=== PATIENT | male | born 1940 | race Caucasian/White ===

== ENCOUNTER 2018-08-24 07:59 | Day surgery (SDC) | payer OTHER ==
[2018-08-23 16:31] LABS: BASOPHILS % (AUTO) 0.4 % (0-1); EOSINOPHILS # (AUTO) 0.4 X10'3 (0-0.9); EOSINOPHILS % (AUTO) 6.4 % (0-6); HEMATOCRIT 43.2 % (42.0-52.0); HEMOGLOBIN 14.6 g/dl (14.0-17.9); LYMPHOCYTES # (AUTO) 2.3 X10'3 (1.1-4.8); MEAN CORPUSCULAR HEMOGLOBIN 29.9 PG (27.0-31.0); MEAN CORPUSCULAR HGB CONC 33.7 % (33.0-36.5); MEAN CORPUSCULAR VOLUME 88.8 FL (78-98); MEAN PLATELET VOLUME 8.3 FL (7.4-10.4); MONOCYTES # (AUTO) 0.5 X10'3 (0-0.9); MONOCYTES % (AUTO) 7.1 % (2-12); NEUTROPHILS # (AUTO) 3.7 X10'3 (1.8-7.7); NEUTROPHILS % (AUTO) 53.1 % (42-75); PLATELET COUNT 234 X10'3 (140-440); RED BLOOD COUNT 4.87 X10'6 (4.70-6.10); RED CELL DISTRIBUTION WIDTH 13.4 % (11.5-14.5)
[2018-08-23 16:56] LABS: ALANINE AMINOTRANSFERASE 32 U/L (12-78); ALBUMIN 3.9 G/DL (3.4-5.0); ALBUMIN/GLOBULIN RATIO 1.1 (1.1-1.5); ALKALINE PHOSPHATASE 73 IU/L (46-116); ANION GAP 8 (8-16); ASPARTATE AMINO TRANSFERASE 22 U/L (10-37); BILIRUBIN,TOTAL 0.5 MG/DL (0.1-1.0); BLOOD UREA NITROGEN 17 MG/DL (7-18); BUN/CREATININE RATIO 15.5 (5.4-32.0); CALCIUM 9.3 MG/DL (8.5-10.1); CHLORIDE 105 MMOL/L (99-107); GLUCOSE 98 MG/DL (70-104); POTASSIUM 4.6 MMOL/L (3.5-5.1); SODIUM 144 MMOL/L (135-145); TOTAL CARBON DIOXIDE 31.4 MMOL/L (24-32); TOTAL PROTEIN 7.5 G/DL (6.4-8.2); eGFR 65 ML/MIN
[2018-08-23 17:14] LABS: PARTIAL THROMBOPLASTIN TIME 29 SECONDS (22-32); PROTHROMBIN TIME 10.5 SECONDS (9.0-12.0)
[~2018-08-24] VITALS: Ht 177.8 cm; Wt 110.3 kg
[2018-08-24] VITALS (12 sets, daily range): BP systolic 139–178; BP diastolic 51–96
[2018-08-24] MEDS ORDERED: LIDOcaine 1% (10mg/ml) 2ml vial ONE (08:15)
[2018-08-24] MEDS ORDERED: insulin Lispro (HumaLOG) vial - multi-dose SQ SCH (08:25)
[2018-08-24] MEDS ORDERED: normal saline 1000ml 1,000 ML IV SCH (08:25)
[2018-08-24] MEDS ORDERED: dextrose ORAL solution 15 GM/59 ML bottle PO PRN ×2 (08:25)
[2018-08-24] MEDS ORDERED: diphenhydrAMINE 25mg capsule PO PRN (08:25)
[2018-08-24] MEDS ORDERED: glucagon, human recombinant 1mg kit SUBCUT PRN (08:25)
[2018-08-24] MEDS ORDERED: LORazepam 0.5 MG tablet PO PRN (08:25)
[2018-08-24] MEDS ORDERED: nitroGLYCERIN 0.4mg SUBLingual tab SL PRN (08:25)
[2018-08-24] MEDS ORDERED: methylPREDNISolone sod succ 125mg/2ml vial IV ONE (08:25)
[2018-08-24] MEDS ORDERED: dextrose 50%-water 50ml dispensing syringe IV PRN ×2 (08:25)
[2018-08-24] MEDS ORDERED: GABA-532 PO (08:36)
[2018-08-24] MEDS ORDERED: ATOR10TA70 PO (08:36)
[2018-08-24] MEDS ORDERED: MONT10TA21 PO (08:36)
[2018-08-24] MEDS ORDERED: SENN-161 PO (08:36)
[2018-08-24] MEDS ORDERED: ASPI-611 PO (08:36)
[2018-08-24] MEDS ORDERED: FEXO180T94 PO (08:36)
[2018-08-24] MEDS ORDERED: METF500T PO (08:36)
[2018-08-24] MEDS ORDERED: DOXY100T2 PO (08:36)
[2018-08-24] MEDS ORDERED: IRBE150T27 PO (08:36)
[2018-08-24] MEDS ORDERED: PIOG15TA8 PO (08:36)
[2018-08-24] MEDS ORDERED: DIAZ10TA PO (08:36)
[2018-08-24] MEDS ORDERED: OXYC-658 PO (08:36)
[2018-08-24] MEDS ORDERED: fentaNYL/PF 50MCG/1 ML 2ML syringe ONE (10:17)
[2018-08-24] MEDS ORDERED: midazolam 2 mg/2 ml injection ONE ×2 (10:17→10:44)
[2018-08-24] MEDS ORDERED: iohexol 350MG/ML 100ml bottle IV ONE (10:18)
[2018-08-24] MEDS ORDERED: iohexol 350 MG/ML 50ML vial IV ONE (10:18)
[2018-08-24] MEDS ORDERED: LIDOcaine 1% (10mg/ml)w/preservative injection 20ml MDV ONE (10:18)
[2018-08-24] MEDS ORDERED: nitroGLYCERIN-Tridil 50MG/D5W 250 ML IV ONE (10:54)
[2018-08-24] MEDS ORDERED: metoprolol tartrate 1mg/ml inj IV ONE (11:02)
[2018-08-24] MEDS ORDERED: ondansetron/PF 4mg/2ml inj IV PRN (11:55)
[2018-08-24] MEDS ORDERED: HYDROcodone/acetaminophen 5mg/325mg tablet PO PRN (11:55)
[2018-08-24] MEDS ORDERED: OXAZEpam 15mg capsule PO PRN (12:00)
[2018-08-24] MEDS ORDERED: proCHLORperazine 10 MG/2 ml inj IV PRN (12:00)
[2018-08-24] MEDS ORDERED: HYDROcodone/acetaminophen 10/325mg tab PO PRN (12:00)
[2018-08-24] MEDS ORDERED: insulin glargine (Lantus) pen - multi-dose SQ SCH (21:00)
== END 2018-08-24 16:45 | disposition home or self-care (01) ==
LOC: SSTAY O 07:59
PROVIDERS: ATTEND Internal Medicine Cardiovascular Disease
DX: I25.119 Atherosclerotic heart disease of native coronary artery with unspecified angina pectoris (principal); E11.40 Type 2 diabetes mellitus with diabetic neuropathy, unspecified; I10 Essential (primary) hypertension; E78.00 Pure hypercholesterolemia, unspecified; J44.9 Chronic obstructive pulmonary disease, unspecified; F41.9 Anxiety disorder, unspecified; M19.90 Unspecified osteoarthritis, unspecified site; Z88.1 Allergy status to other antibiotic agents; Z88.8 Allergy status to other drugs, medicaments and biological substances; Z87.891 Personal history of nicotine dependence; Z79.899 Other long term (current) drug therapy; Z98.890 Other specified postprocedural states
CPT/HCPCS: 36415; 71046; 80053; 82948; 85025; 85610; 85730; 93005; 93458; 99152; 99153; A6257; J1644; J2001; J2250; J2930; J3010; J3490; J7030; Q0163; Q9967; A4620; C1760; C1769; J1815

== ENCOUNTER 2018-09-07 05:11 | Inpatient (IN) | payer OTHER ==
[2018-09-05 13:21] LABS: ABG BASE EXCESS 1.9 mmol/L (-2.0-3.0); ABG HCO3 26.3 mmol/L (22.0-26.0); ABG PCO2 (T) 40.4 mmHg (35.0-48.0); ABG PH (T) 7.431 (7.350-7.450); ABG PO2 (T) 84.9 mmHg (83-108); ALLEN'S TEST Positive; FCOHb 0.3 % (0.5-1.5); FO2Hb 95.7 % (94-100); TOTAL HEMOGLOBIN 14.9 G/dl (14.0-18.0)
[2018-09-05 13:40] LABS: BASOPHILS % (AUTO) 0.2 % (0-1); EOSINOPHILS # (AUTO) 0.4 X10'3 (0-0.9); EOSINOPHILS % (AUTO) 4.2 % (0-6); LYMPHOCYTES # (AUTO) 1.9 X10'3 (1.1-4.8); MEAN CORPUSCULAR HEMOGLOBIN 29.8 PG (27.0-31.0); MEAN CORPUSCULAR HGB CONC 33.3 % (33.0-36.5); MEAN CORPUSCULAR VOLUME 89.6 FL (78-98); MEAN PLATELET VOLUME 8.5 FL (7.4-10.4); MONOCYTES # (AUTO) 0.5 X10'3 (0-0.9); MONOCYTES % (AUTO) 5.1 % (2-12); NEUTROPHILS # (AUTO) 6.8 X10'3 (1.8-7.7); NEUTROPHILS % (AUTO) 70.5 % (42-75); PRE OP HEMATOCRIT 42.7 % (42.0-52.0); PRE OP HEMOGLOBIN 14.2 g/dL (14.0-17.9); PRE OP PLATELET COUNT 214 X10'3 (140-440); RED BLOOD COUNT 4.77 X10'6 (4.70-6.10); RED CELL DISTRIBUTION WIDTH 13.3 % (11.5-14.5)
[2018-09-05 13:48] LABS: CLARITY,URINE CLEAR (Clear); COLOR,URINE YELLOW (Yellow); GLUCOSE, URINE NEGATIVE (Neg); KETONES,URINE NEGATIVE (Neg); LEUKOCYTE ESTERASE ,URINE NEGATIVE (Neg); NITRITES, URINE NEGATIVE (Neg); OCCULT BLOOD,URINE NEGATIVE (Neg); PH,URINE 5.5 (4.8-8.0); PROTEIN,URINE NEGATIVE (Neg); UROBILINOGEN,URINE 0.2 E.U/dL (0.2-1.0)
[2018-09-05 13:49] LABS: UA COLLECTION TYPE CLN CATCH MIDSTREAM
[2018-09-05 13:53] LABS: HEMOGLOBIN A1C 6.6 % (4.5-6.2)
[2018-09-05 13:55] LABS: ALBUMIN 3.8 G/DL (3.4-5.0); ALBUMIN/GLOBULIN RATIO 1.1 (1.1-1.5); ALKALINE PHOSPHATASE 80 IU/L (46-116); BLOOD UREA NITROGEN 21 MG/DL (7-18); BUN/CREATININE RATIO 18.8 (5.4-32.0); CALCIUM 9.3 MG/DL (8.5-10.1); CHLORIDE 104 MMOL/L (99-107); CREATININE 1.12 MG/DL (0.60-1.10); PRE OP ALT 26 U/L (30-65); PRE OP ANION GAP 7 (8-16); PRE OP AST 17 U/L (10-37); PRE OP BILIRUB, TOTAL 0.4 MG/DL (0.0-1.0); PRE OP GLUCOSE 152 MG/DL (70-104); PRE OP POTASSIUM 4.2 MMOL/L (3.4-5.1); PRE OP SODIUM 143 MMOL/L (135-145); TOTAL CARBON DIOXIDE 31.7 MMOL/L (24-32); TOTAL PROTEIN 7.4 G/DL (6.4-8.2); eGFR 63 ML/MIN
[2018-09-05 14:06] LABS: PRE OP PROTIME 10.4 SECONDS (9.0-12.0)
[2018-09-07] VITALS (17 sets, daily range): BP systolic 100–158; BP diastolic 43–75
[~2018-09-07] VITALS: Ht 177.8 cm; Wt 109.1 kg
[~2018-09-07 05:11] MED LIST: ASPI-611 PO; ATOR10TA70 PO; DIAZ10TA PO; DOXY100T2 PO; FEXO180T94 PO; GABA-532 PO; IRBE150T27 PO; METF500T PO; MONT10TA21 PO; OXYC-658 PO; PIOG30TA71 PO; SENN-161 PO; ringers solution, lacted 1,000 ML IV SCH
[2018-09-07] MEDS ORDERED: LIDOcaine 1% (10mg/ml) 2ml vial ONE (05:22)
[2018-09-07] MEDS: DOCUMENT DATE & TIME OF BETA-BLOCKER PO ONE (05:30)
[2018-09-07] MEDS ORDERED: LORazepam 2 mg/ml vial IV PRN (05:30)
[2018-09-07] MEDS ORDERED: cefazolin/dext.iso 2gm/50ml 50 ML IV ONE (05:30)
[2018-09-07] MEDS ORDERED: metoprolol tartrate 12.5mg (1/2 tablet) PO ONE (05:30)
[2018-09-07] MEDS ORDERED: vancomycin inj 1,500 MG in normal saline 300ml IV soln IV ONE (05:30)
[2018-09-07] MEDS ORDERED: mupirocin 2% nasal ointment 1gm UD NS SCH (05:30)
[2018-09-07] MEDS ORDERED: famotidine 20mg tablet PO ONE (05:30)
[2018-09-07] MEDS ORDERED: SUfentanil 50mcg/ml 1ml amp IV ONE ×3 (07:40)
[2018-09-07] MEDS ORDERED: nitroGLYCERIN in D5W 50mg/250ml (Tridil) infusion IV ONE (07:40)
[2018-09-07] MEDS ORDERED: niCARDipine in NS 40mg/200ml (0.2mg/ml) IVPB IV ONE (07:40)
[2018-09-07] MEDS ORDERED: MIDAZolam 1mg/ml 10ml vial ONE (07:40)
[2018-09-07] MEDS ORDERED: protamine sulf. 10mg/ml inj. IV ONE (07:40)
[2018-09-07] MEDS ORDERED: aminocaproic acid 250 MG/1 ML inj. ONE ×2 (07:40→14:00)
[2018-09-07] MEDS ORDERED: sevoflurane 250ml liquid IH ONE (07:40)
[2018-09-07] MEDS ORDERED: INSULIN R 100 UNIT in NS 100ML (1 UNIT/1 ML) BAG IV ONE (07:40)
[2018-09-07] MEDS ORDERED: pancuronium br 1mg/ml inj IV ONE (07:43)
[2018-09-07] MEDS ORDERED: propofol inj 20 ML IV ONE (07:43)
[2018-09-07] MEDS ORDERED: LIDOcaine 2% (20mg/ml) 5ml vial ONE (07:43)
[2018-09-07 08:26] LABS: ABG BASE EXCESS -0.2 mmol/L (-2.0-3.0); ABG OXYGEN SATURATION 99.3 % (95-98); ABG PH 7.382 (7.350-7.450); ABG PO2 426.2 mmHg (60.0-100.0); CL (ABG) 108 mmol/L (99-107); FCOHb 0.7 % (0.5-1.5); FMetHb 0.3 % (0.3-1.12); FO2Hb 98.3 % (94-100); GLUCOSE (ABG) 137 mg/dl (70-105); IONIZED CA (ABG) 1.14 mmol/L (1.03-1.32); NA (ABG) 137 mmol/L (135-145); TOTAL HEMOGLOBIN 13.2 G/dl (14.0-18.0)
[2018-09-07] MEDS ORDERED: heparin 10,000 units/1 ML INJ IR ONE (08:47)
[2018-09-07] MEDS ORDERED: papaverine 30 mg/ml 2ml inj. IA ONE (08:47)
[2018-09-07] MEDS ORDERED: papaverine 30 mg/ml 2ml inj. ONE (09:00)
[2018-09-07] MEDS ORDERED: heparin 1,000 units/ml 10ml inj ONE ×2 (09:00→14:00)
[2018-09-07] MEDS ORDERED: ePHEDrine 50MG/ML INJ. ONE (09:06)
[2018-09-07] MEDS ORDERED: rocuronium 10mg/ml inj IV ONE ×2 (09:06)
[2018-09-07 09:21] LABS: ACT @ 1.70 U 346 SEC (193-297); ACT @ 2.84 U 506 SEC (260-420); BASELINE ACT 163 SEC (101-148)
[2018-09-07] MEDS ORDERED: labetalol 5mg/ml 20ml inj. IV ONE (09:38)
[2018-09-07 10:11] LABS: ABG BASE EXCESS 0.4 mmol/L (-2.0-3.0); ABG HCO3 24.1 mmol/L (22.0-26.0); ABG OXYGEN SATURATION 98.7 % (95-98); ABG PH 7.455 (7.350-7.450); ABG PO2 372.7 mmHg (60.0-100.0); CL (ABG) 107 mmol/L (99-107); FCOHb 0.3 % (0.5-1.5); FMetHb 0.6 % (0.3-1.12); FO2Hb 97.8 % (94-100); GLUCOSE (ABG) 136 mg/dl (70-105); K (ABG) 5.1 mmol/L (3.3-5.1); NA (ABG) 133 mmol/L (135-145); TOTAL HEMOGLOBIN 10.5 G/dl (14.0-18.0)
[2018-09-07 10:30] LABS: ABG BASE EXCESS VENOUS 0.6 mmol/L; ABG HCO3 VENOUS 25.4 mmol/L; ABG PCO2 VENOUS 41.5 mmHg; ABG PO2 VENOUS 51.5 mmHg; CL (ABG) 107 mmol/L (99-107); FCOHb VENOUS 0.3 %; FHHb VENOUS 13.1 %; FMetHb VENOUS 0.6 %; GLUCOSE (ABG) 150 mg/dl (70-105); IONIZED CA (ABG) 1.01 mmol/L (1.03-1.32); K (ABG) 5.1 mmol/L (3.3-5.1); NA (ABG) 135 mmol/L (135-145); TOTAL HEMOGLOBIN 10.6 G/dl (14.0-18.0)
[2018-09-07 11:26] LABS: ABG BASE EXCESS -1.9 mmol/L (-2.0-3.0); ABG HCO3 22.9 mmol/L (22.0-26.0); ABG OXYGEN SATURATION 97.9 % (95-98); ABG PCO2 39.2 mmHg (35.0-45.0); ABG PH 7.385 (7.350-7.450); ABG PO2 140.9 mmHg (60.0-100.0); CL (ABG) 108 mmol/L (99-107); FCOHb 0.3 % (0.5-1.5); FMetHb 0.4 % (0.3-1.12); FO2Hb 97.2 % (94-100); GLUCOSE (ABG) 139 mg/dl (70-105); IONIZED CA (ABG) 1.08 mmol/L (1.03-1.32); NA (ABG) 137 mmol/L (135-145); TOTAL HEMOGLOBIN 10.6 G/dl (14.0-18.0)
[2018-09-07 11:50] LABS: ABG HCO3 24.8 mmol/L (22.0-26.0); ABG OXYGEN SATURATION 98.7 % (95-98); ABG PCO2 41.3 mmHg (35.0-45.0); ABG PH 7.397 (7.350-7.450); ABG PO2 321.8 mmHg (60.0-100.0); CL (ABG) 105 mmol/L (99-107); FCOHb 0.3 % (0.5-1.5); FMetHb 0.5 % (0.3-1.12); FO2Hb 97.9 % (94-100); GLUCOSE (ABG) 123 mg/dl (70-105); IONIZED CA (ABG) 1.39 mmol/L (1.03-1.32); K (ABG) 4.4 mmol/L (3.3-5.1); NA (ABG) 134 mmol/L (135-145); TOTAL HEMOGLOBIN 9.3 G/dl (14.0-18.0)
[2018-09-07 12:10] LABS: ABG BASE EXCESS 2.2 mmol/L (-2.0-3.0); ABG HCO3 27.7 mmol/L (22.0-26.0); ABG OXYGEN SATURATION 77.1 % (95-98); ABG PCO2 47.1 mmHg (35.0-45.0); ABG PH 7.387 (7.350-7.450); CL (ABG) 107 mmol/L (99-107); FCOHb 0.3 % (0.5-1.5); FMetHb 0.5 % (0.3-1.12); FO2Hb 76.5 % (94-100); GLUCOSE (ABG) 125 mg/dl (70-105); IONIZED CA (ABG) 1.21 mmol/L (1.03-1.32); K (ABG) 4.3 mmol/L (3.3-5.1); NA (ABG) 138 mmol/L (135-145)
[2018-09-07 12:21] LABS: ACTIVATED CLOTTING TIME 151 SEC (101-148)
[2018-09-07] MEDS ORDERED: nitroGLYCERIN-Tridil 50MG/D5W 250 ML IV PRN (12:57)
[2018-09-07] MEDS ORDERED: DOPamine 400mg/D5W 250ml 250 ML IV PRN (12:57)
[2018-09-07] MEDS ORDERED: niCARDipine-NS 40mg/200ml IVPB 200 ML IV PRN (12:57)
[2018-09-07] MEDS ORDERED: insulin regular, human inj. 100 UNITS in normal saline 100ml IV soln 100 ML IV SCH ×2 (13:00)
[2018-09-07] MEDS ORDERED: sodium phosphate inj. 15 MMOL in dextrose 5%-water 150 ML IV PRN (13:00)
[2018-09-07] MEDS ORDERED: normal saline 250ml IV soln 250 ML IV PRN (13:00)
[2018-09-07] MEDS ORDERED: dextrose 50%-water 50ml dispensing syringe IV PRN (13:00)
[2018-09-07] MEDS ORDERED: metoclopramide 5 mg/ml inj IV PRN (13:00)
[2018-09-07] MEDS ORDERED: magnesium 4gm in 100ml NS 100 ML IV PRN (13:00)
[2018-09-07] MEDS ORDERED: pantoprazole 40 MG vial IV ONE (13:00)
[2018-09-07] MEDS: insulin Lispro (HumaLOG) vial - multi-dose SQ SCH ×2 (13:00→18:00)
[2018-09-07] MEDS ORDERED: Neutra Phos packet PO PRN (13:00)
[2018-09-07] MEDS ORDERED: morphine 4 MG/ML inj SYRINge IV PRN (13:00)
[2018-09-07] MEDS ORDERED: potassium Cl 20mEq/100mL bag 100 ML IV PRN ×2 (13:00)
[2018-09-07] MEDS ORDERED: ondansetron/PF 4mg/2ml inj IV PRN (13:00)
[2018-09-07] MEDS ORDERED: acetaminophen 325mg tablet PO PRN (13:00)
[2018-09-07] MEDS ORDERED: magnesium 2GM in 50ml NS 50 ML IV PRN (13:00)
[2018-09-07] MEDS ORDERED: sodium phosphate inj. 30 MMOL in dextrose 5%-water 250 ML IV PRN (13:00)
[2018-09-07] MEDS: insulin regular, human 100 UNIT in normal saline 100ml IV soln 99 ML IV SCH ×2 (13:15)
[2018-09-07 13:16] LABS: ABG BASE EXCESS -2.1 mmol/L (-2.0-3.0); ABG HCO3 22.9 mmol/L (22.0-26.0); ABG OXYGEN SATURATION 98.5 % (95-98); ABG PCO2 (T) 39.2 mmHg (35.0-48.0); ABG PH (T) 7.382 (7.350-7.450); ABG PO2 (T) 163.9 mmHg (83-108); FCOHb 0.1 % (0.5-1.5); FMetHb 0.1 % (0.3-1.12); FO2Hb 98.3 % (94-100); MINUTE VOLUME 8 L/min; PATIENT TEMPERATURE 36.7; PEEP 5 cm H2O; RESPIRATORY RATE 12 b/min; RESPIRATORY RATE (OBSERVED) 12 b/min; TIDAL VOLUME 600 mL; TOTAL HEMOGLOBIN 13.5 G/dl (14.0-18.0)
[2018-09-07 13:22] LABS: BASOPHILS # (AUTO) 0.1 X10'3 (0-0.2); BASOPHILS % (AUTO) 0.6 % (0-1); EOSINOPHILS # (AUTO) 0.1 X10'3 (0-0.9); EOSINOPHILS % (AUTO) 0.5 % (0-6); HEMATOCRIT 38.2 % (42.0-52.0); HEMOGLOBIN 12.9 g/dl (14.0-17.9); LYMPHOCYTES # (AUTO) 0.4 X10'3 (1.1-4.8); LYMPHOCYTES % (AUTO) 3.4 % (21-51); MEAN CORPUSCULAR HEMOGLOBIN 30.2 PG (27.0-31.0); MEAN CORPUSCULAR HGB CONC 33.9 % (33.0-36.5); MEAN CORPUSCULAR VOLUME 89.3 FL (78-98); MEAN PLATELET VOLUME 8.3 FL (7.4-10.4); MONOCYTES % (AUTO) 0.3 % (2-12); NEUTROPHILS # (AUTO) 12.6 X10'3 (1.8-7.7); NEUTROPHILS % (AUTO) 95.2 % (42-75); PLATELET COUNT 141 X10'3 (140-440); RED BLOOD COUNT 4.28 X10'6 (4.70-6.10); RED CELL DISTRIBUTION WIDTH 13.5 % (11.5-14.5); WHITE BLOOD COUNT 13.3 X10'3 (4.5-11.0)
[2018-09-07] MEDS: sodium chloride 0.45% 1,000 ML IV SCH (13:34)
[2018-09-07 13:37] LABS: ALANINE AMINOTRANSFERASE 22 U/L (12-78); ALBUMIN 3.5 G/DL (3.4-5.0); ALBUMIN/GLOBULIN RATIO 1.6 (1.1-1.5); ALKALINE PHOSPHATASE 53 IU/L (46-116); ANION GAP 9 (8-16); ASPARTATE AMINO TRANSFERASE 35 U/L (10-37); BILIRUBIN,TOTAL 0.6 MG/DL (0.1-1.0); BLOOD UREA NITROGEN 21 MG/DL (7-18); BUN/CREATININE RATIO 18.4 (5.4-32.0); CALCIUM 8.7 MG/DL (8.5-10.1); CHLORIDE 108 MMOL/L (99-107); CREATININE 1.14 MG/DL (0.60-1.10); GLUCOSE 111 MG/DL (70-104); SODIUM 144 MMOL/L (135-145); TOTAL CARBON DIOXIDE 27.1 MMOL/L (24-32); TOTAL PROTEIN 5.7 G/DL (6.4-8.2); eGFR 62 ML/MIN
[2018-09-07 13:39] LABS: INR 1.2 INR; PARTIAL THROMBOPLASTIN TIME 32 SECONDS (22-32); PROTHROMBIN TIME 11.7 SECONDS (9.0-12.0)
[2018-09-07 13:44] LABS: MAGNESIUM 2.7 MG/DL (1.5-2.4)
[2018-09-07 13:46] LABS: POTASSIUM 3.7 MMOL/L (3.5-5.1)
[2018-09-07 13:47] LABS: PHOSPHORUS 1.1 MG/DL (2.3-4.5)
[2018-09-07] MEDS: albumin (Human) 5% 250ml 250 ML IV PRN ×2 (13:49→20:08)
[2018-09-07] MEDS: potassium Cl 20mEq/100mL bag 100 ML IV PRN ×2 (13:55→20:46)
[2018-09-07] MEDS ORDERED: heparin 10,000 units/1 ML INJ ONE (14:00)
[2018-09-07] MEDS ORDERED: LIDOcaine 2% (20 mg/ml) 5ml cardiac syringe ONE (14:00)
[2018-09-07] MEDS ORDERED: calcium chloride 100 MG/1 ML inj IV ONE (14:00)
[2018-09-07] MEDS ORDERED: magnesium sulf 1 GM/2 ML ONE (14:00)
[2018-09-07] MEDS ORDERED: sodium bicarbonate (8.4%) 1 mEq/ml syringe ONE (14:00)
[2018-09-07] MEDS ORDERED: phenylephrine 10mg/ml inj. ONE (14:00)
[2018-09-07] MEDS ORDERED: albumin (human) 25% 100 ML IV solution IV ONE (14:00)
[2018-09-07] MEDS ORDERED: potassium Cl 2 mEq/ml inj IV ONE (14:00)
[2018-09-07] MEDS: morphine 4 MG/ML inj SYRINge IV PRN ×4 (14:59→20:43)
[2018-09-07] MEDS: ceFAZolin 1GM/D5W- ADD-VANTAGE 50 ML IV SCH ×2 (16:16→23:49)
[2018-09-07] MEDS: DOXYCYCLINE 100MG CAPSULE PO SCH (17:30)
[2018-09-07] MEDS: gabapentin 300mg capsule PO SCH ×2 (18:22→23:49)
[2018-09-07 19:18] LABS: BASOPHILS % (AUTO) 0 % (0-1); EOSINOPHILS # (AUTO) 0.3 X10'3 (0-0.9); EOSINOPHILS % (AUTO) 1.6 % (0-6); HEMATOCRIT 32.7 % (42.0-52.0); HEMOGLOBIN 11.1 g/dl (14.0-17.9); LYMPHOCYTES # (AUTO) 0.2 X10'3 (1.1-4.8); LYMPHOCYTES % (AUTO) 1.1 % (21-51); MEAN CORPUSCULAR HEMOGLOBIN 30.1 PG (27.0-31.0); MEAN CORPUSCULAR VOLUME 88.6 FL (78-98); MEAN PLATELET VOLUME 8.5 FL (7.4-10.4); MONOCYTES # (AUTO) 0.2 X10'3 (0-0.9); MONOCYTES % (AUTO) 1.3 % (2-12); NEUTROPHILS # (AUTO) 17.1 X10'3 (1.8-7.7); PLATELET COUNT 130 X10'3 (140-440); RED BLOOD COUNT 3.69 X10'6 (4.70-6.10); RED CELL DISTRIBUTION WIDTH 13.7 % (11.5-14.5); WHITE BLOOD COUNT 17.8 X10'3 (4.5-11.0)
[2018-09-07 19:36] LABS: ALBUMIN 3.3 G/DL (3.4-5.0); ANION GAP 8 (8-16); BLOOD UREA NITROGEN 24 MG/DL (7-18); BUN/CREATININE RATIO 17.5 (5.4-32.0); CALCIUM 8.3 MG/DL (8.5-10.1); CHLORIDE 110 MMOL/L (99-107); CREATININE 1.37 MG/DL (0.60-1.10); GLUCOSE 177 MG/DL (70-104); MAGNESIUM 2.2 MG/DL (1.5-2.4); PHOSPHORUS 2.2 MG/DL (2.3-4.5); POTASSIUM 3.7 MMOL/L (3.5-5.1); SODIUM 144 MMOL/L (135-145); TOTAL CARBON DIOXIDE 26.4 MMOL/L (24-32); eGFR 50 ML/MIN
[2018-09-07] MEDS: docusate sod 100mg capsule PO SCH (20:00)
[2018-09-07] MEDS: vancomycin/NS 1 GM ADD-VANTAGE 250 ML IV SCH (20:43)
[2018-09-07 21:51] LABS: ABG BASE EXCESS -1.5 mmol/L (-2.0-3.0); ABG HCO3 23.8 mmol/L (22.0-26.0); ABG OXYGEN SATURATION 97.7 % (95-98); ABG PCO2 (T) 41.7 mmHg (35.0-48.0); ABG PH (T) 7.373 (7.350-7.450); ABG PO2 (T) 117.1 mmHg (83-108); FCOHb 0.3 % (0.5-1.5); FMetHb 0.1 % (0.3-1.12); FO2Hb 97.3 % (94-100); MINUTE VOLUME 9 L/min; PATIENT TEMPERATURE 36.8; PEEP 5 cm H2O; RESPIRATORY RATE (OBSERVED) 12 b/min; TOTAL HEMOGLOBIN 11.4 G/dl (14.0-18.0)
[2018-09-07] MEDS: mupirocin 2% ointment 22GM NS SCH (23:49)
[2018-09-08] VITALS (20 sets, daily range): BP systolic 96–140; BP diastolic 43–62
[2018-09-08 00:13] LABS: BASOPHILS % (AUTO) 0 % (0-1); EOSINOPHILS # (AUTO) 0.2 X10'3 (0-0.9); EOSINOPHILS % (AUTO) 1.3 % (0-6); HEMATOCRIT 32.6 % (42.0-52.0); HEMOGLOBIN 10.9 g/dl (14.0-17.9); LYMPHOCYTES # (AUTO) 0.3 X10'3 (1.1-4.8); MEAN CORPUSCULAR HEMOGLOBIN 30.1 PG (27.0-31.0); MEAN CORPUSCULAR HGB CONC 33.4 % (33.0-36.5); MEAN CORPUSCULAR VOLUME 90.3 FL (78-98); MEAN PLATELET VOLUME 8.4 FL (7.4-10.4); MONOCYTES # (AUTO) 0.2 X10'3 (0-0.9); MONOCYTES % (AUTO) 1.1 % (2-12); NEUTROPHILS # (AUTO) 16.1 X10'3 (1.8-7.7); NEUTROPHILS % (AUTO) 95.6 % (42-75); PLATELET COUNT 131 X10'3 (140-440); RED BLOOD COUNT 3.61 X10'6 (4.70-6.10); RED CELL DISTRIBUTION WIDTH 14.1 % (11.5-14.5); WHITE BLOOD COUNT 16.8 X10'3 (4.5-11.0)
[2018-09-08 00:29] LABS: ALANINE AMINOTRANSFERASE 26 U/L (12-78); ALBUMIN 3.5 G/DL (3.4-5.0); ALBUMIN/GLOBULIN RATIO 1.6 (1.1-1.5); ALKALINE PHOSPHATASE 35 IU/L (46-116); ANION GAP 8 (8-16); ASPARTATE AMINO TRANSFERASE 45 U/L (10-37); BILIRUBIN,TOTAL 0.5 MG/DL (0.1-1.0); BLOOD UREA NITROGEN 24 MG/DL (7-18); BUN/CREATININE RATIO 21.8 (5.4-32.0); CALCIUM 8.4 MG/DL (8.5-10.1); CHLORIDE 110 MMOL/L (99-107); GLUCOSE 136 MG/DL (70-104); PHOSPHORUS 2.9 MG/DL (2.3-4.5); POTASSIUM 4.3 MMOL/L (3.5-5.1); SODIUM 143 MMOL/L (135-145); TOTAL CARBON DIOXIDE 25.1 MMOL/L (24-32); TOTAL PROTEIN 5.7 G/DL (6.4-8.2); eGFR 65 ML/MIN
[2018-09-08 00:31] LABS: INR 1.1 INR; PARTIAL THROMBOPLASTIN TIME 27 SECONDS (22-32); PROTHROMBIN TIME 10.8 SECONDS (9.0-12.0)
[2018-09-08] MEDS: HYDROcodone/acetaminophen 10/325mg tab PO PRN ×3 (04:52→16:56)
[2018-09-08] MEDS: insulin regular, human 100 UNIT in normal saline 100ml IV soln 99 ML IV SCH ×2 (05:30)
[2018-09-08] MEDS: ceFAZolin 1GM/D5W- ADD-VANTAGE 50 ML IV SCH ×3 (07:04→23:43)
[2018-09-08] MEDS: gabapentin 300mg capsule PO SCH ×3 (07:19→21:24)
[2018-09-08] MEDS: docusate sod 100mg capsule PO SCH ×2 (07:19→19:22)
[2018-09-08] MEDS: atorvastatin 10mg tablet PO SCH (07:19)
[2018-09-08] MEDS: loratadine 10mg tablet PO SCH (07:19)
[2018-09-08] MEDS: montelukast 10mg tablet PO SCH (07:20)
[2018-09-08] MEDS: mupirocin 2% ointment 22GM NS SCH ×2 (07:27→19:22)
[2018-09-08 07:32] LABS: ABG PO2 41.4 mmHg (60.0-100.0)
[2018-09-08] MEDS: vancomycin/NS 1 GM ADD-VANTAGE 250 ML IV SCH ×2 (07:43→19:22)
[2018-09-08] MEDS ORDERED: aspirin 325mg tablet, delayed-release (Ecotrin) PO SCH (08:00)
[2018-09-08] MEDS ORDERED: metoprolol tartrate 12.5mg (1/2 tablet) PO SCH (08:00)
[2018-09-08] MEDS ORDERED: ketorolac tromethamine 15mg/ml inj. IV ONE (08:00)
[2018-09-08] MEDS ORDERED: glucagon, human recombinant 1mg kit SUBCUT PRN (08:15)
[2018-09-08] MEDS ORDERED: MESSAGE TO PHARMACY PO ONE (08:15)
[2018-09-08] MEDS ORDERED: dextrose 50%-water 50ml dispensing syringe IV PRN ×2 (08:15)
[2018-09-08] MEDS ORDERED: dextrose ORAL solution 15 GM/59 ML bottle PO PRN ×2 (08:15)
[2018-09-08] MEDS: DOXYCYCLINE 100MG CAPSULE PO SCH ×2 (08:30→15:09)
[2018-09-08] MEDS: insulin Lispro (HumaLOG) vial - multi-dose SQ SCH ×3 (08:37→19:26)
[2018-09-08] MEDS: metoprolol tartrate 25mg tablet PO SCH (19:22)
[2018-09-08] MEDS: losartan 25mg tablet PO SCH (20:55)
[2018-09-08] MEDS: insulin glargine (Lantus) pen - multi-dose SQ SCH (20:57)
[2018-09-09] VITALS (24 sets, daily range): BP systolic 86–151; BP diastolic 42–86
[2018-09-09] MEDS: HYDROcodone/acetaminophen 10/325mg tab PO PRN ×5 (00:14→21:48)
[2018-09-09 04:14] LABS: BASOPHILS % (AUTO) 0 % (0-1); EOSINOPHILS # (AUTO) 0.4 X10'3 (0-0.9); EOSINOPHILS % (AUTO) 1.9 % (0-6); HEMATOCRIT 29.5 % (42.0-52.0); HEMOGLOBIN 9.9 g/dl (14.0-17.9); LYMPHOCYTES # (AUTO) 0.8 X10'3 (1.1-4.8); LYMPHOCYTES % (AUTO) 4.2 % (21-51); MEAN CORPUSCULAR HEMOGLOBIN 30.4 PG (27.0-31.0); MEAN CORPUSCULAR HGB CONC 33.7 % (33.0-36.5); MEAN CORPUSCULAR VOLUME 90.1 FL (78-98); MEAN PLATELET VOLUME 8.9 FL (7.4-10.4); MONOCYTES # (AUTO) 1.1 X10'3 (0-0.9); MONOCYTES % (AUTO) 5.2 % (2-12); NEUTROPHILS # (AUTO) 17.9 X10'3 (1.8-7.7); NEUTROPHILS % (AUTO) 88.7 % (42-75); PLATELET COUNT 124 X10'3 (140-440); RED BLOOD COUNT 3.27 X10'6 (4.70-6.10); RED CELL DISTRIBUTION WIDTH 13.8 % (11.5-14.5); WHITE BLOOD COUNT 20.2 X10'3 (4.5-11.0)
[2018-09-09 04:30] LABS: ALBUMIN 3.4 G/DL (3.4-5.0); ANION GAP 5 (8-16); BLOOD UREA NITROGEN 30 MG/DL (7-18); BUN/CREATININE RATIO 25.6 (5.4-32.0); CALCIUM 7.9 MG/DL (8.5-10.1); CHLORIDE 105 MMOL/L (99-107); CREATININE 1.17 MG/DL (0.60-1.10); GLUCOSE 183 MG/DL (70-104); MAGNESIUM 2.7 MG/DL (1.5-2.4); POTASSIUM 5.5 MMOL/L (3.5-5.1); SODIUM 137 MMOL/L (135-145); TOTAL CARBON DIOXIDE 27.5 MMOL/L (24-32); eGFR 60 ML/MIN
[2018-09-09] MEDS: atorvastatin 10mg tablet PO SCH (08:05)
[2018-09-09] MEDS: loratadine 10mg tablet PO SCH (08:05)
[2018-09-09] MEDS: metoprolol tartrate 25mg tablet PO SCH ×2 (08:05→20:00)
[2018-09-09] MEDS: aspirin 81mg tablet.DR PO SCH (08:06)
[2018-09-09] MEDS: pantoprazole 40mg Tablet.DR PO SCH (08:06)
[2018-09-09] MEDS: docusate sod 100mg capsule PO SCH ×2 (08:06→21:47)
[2018-09-09] MEDS: mupirocin 2% ointment 22GM NS SCH (08:06)
[2018-09-09] MEDS: gabapentin 300mg capsule PO SCH ×2 (08:06→16:49)
[2018-09-09] MEDS: montelukast 10mg tablet PO SCH (08:06)
[2018-09-09] MEDS: insulin Lispro (HumaLOG) vial - multi-dose SQ SCH ×3 (08:58→19:53)
[2018-09-09] MEDS: DOXYCYCLINE 100MG CAPSULE PO SCH ×2 (12:40→17:28)
[2018-09-09] MEDS: sodium chloride 0.45% 1,000 ML IV SCH (12:41)
[2018-09-09] MEDS: losartan 25mg tablet PO SCH (21:00)
[2018-09-09] MEDS: insulin glargine (Lantus) pen - multi-dose SQ SCH (22:27)
[2018-09-10] VITALS (23 sets, daily range): BP systolic 90–144; BP diastolic 44–74
[2018-09-10] MEDS: gabapentin 300mg capsule PO SCH ×4 (00:59→23:10)
[2018-09-10 06:02] LABS: BASOPHILS % (AUTO) 0.2 % (0-1); EOSINOPHILS % (AUTO) 0.2 % (0-6); HEMOGLOBIN 8.8 g/dl (14.0-17.9); LYMPHOCYTES # (AUTO) 1.3 X10'3 (1.1-4.8); LYMPHOCYTES % (AUTO) 11.7 % (21-51); MEAN CORPUSCULAR HEMOGLOBIN 30.3 PG (27.0-31.0); MEAN CORPUSCULAR HGB CONC 33.7 % (33.0-36.5); MEAN PLATELET VOLUME 9.2 FL (7.4-10.4); MONOCYTES # (AUTO) 0.9 X10'3 (0-0.9); MONOCYTES % (AUTO) 8.3 % (2-12); NEUTROPHILS # (AUTO) 8.9 X10'3 (1.8-7.7); NEUTROPHILS % (AUTO) 79.6 % (42-75); PLATELET COUNT 112 X10'3 (140-440); RED BLOOD COUNT 2.89 X10'6 (4.70-6.10); RED CELL DISTRIBUTION WIDTH 13.7 % (11.5-14.5); WHITE BLOOD COUNT 11.2 X10'3 (4.5-11.0)
[2018-09-10 06:52] LABS: ANION GAP 6 (8-16); BLOOD UREA NITROGEN 38 MG/DL (7-18); CALCIUM 7.2 MG/DL (8.5-10.1); CHLORIDE 104 MMOL/L (99-107); CREATININE 1.31 MG/DL (0.60-1.10); GLUCOSE 148 MG/DL (70-104); MAGNESIUM 2.3 MG/DL (1.5-2.4); PHOSPHORUS 2.6 MG/DL (2.3-4.5); POTASSIUM 4.7 MMOL/L (3.5-5.1); SODIUM 137 MMOL/L (135-145); TOTAL CARBON DIOXIDE 27.4 MMOL/L (24-32); eGFR 53 ML/MIN
[2018-09-10] MEDS: aspirin 81mg tablet.DR PO SCH (07:38)
[2018-09-10] MEDS: docusate sod 100mg capsule PO SCH ×2 (07:38→20:00)
[2018-09-10] MEDS: pantoprazole 40mg Tablet.DR PO SCH (07:38)
[2018-09-10] MEDS: metoprolol tartrate 25mg tablet PO SCH ×2 (07:38→20:00)
[2018-09-10] MEDS: montelukast 10mg tablet PO SCH (07:38)
[2018-09-10] MEDS: loratadine 10mg tablet PO SCH (07:38)
[2018-09-10] MEDS: atorvastatin 10mg tablet PO SCH (07:38)
[2018-09-10] MEDS: DOXYCYCLINE 100MG CAPSULE PO SCH ×2 (07:38→17:31)
[2018-09-10] MEDS: HYDROcodone/acetaminophen 10/325mg tab PO PRN ×4 (07:39→23:10)
[2018-09-10] MEDS: insulin Lispro (HumaLOG) vial - multi-dose SQ SCH ×3 (10:20→20:03)
[2018-09-10] MEDS: magnesium hydroxide 30ml (MOM) UD suspension PO PRN (14:02)
[2018-09-10] MEDS: insulin glargine (Lantus) pen - multi-dose SQ SCH (21:30)
[2018-09-11] VITALS (24 sets, daily range): BP systolic 85–144; BP diastolic 44–71
[2018-09-11] MEDS: HYDROcodone/acetaminophen 10/325mg tab PO PRN ×4 (03:20→19:24)
[2018-09-11 05:12] LABS: BASOPHILS % (AUTO) 0.2 % (0-1); EOSINOPHILS # (AUTO) 0.3 X10'3 (0-0.9); EOSINOPHILS % (AUTO) 3.5 % (0-6); HEMATOCRIT 28.8 % (42.0-52.0); HEMOGLOBIN 9.8 g/dl (14.0-17.9); LYMPHOCYTES # (AUTO) 1.7 X10'3 (1.1-4.8); LYMPHOCYTES % (AUTO) 16.7 % (21-51); MEAN CORPUSCULAR HEMOGLOBIN 30.7 PG (27.0-31.0); MEAN CORPUSCULAR HGB CONC 34.2 % (33.0-36.5); MEAN CORPUSCULAR VOLUME 89.9 FL (78-98); MEAN PLATELET VOLUME 8.9 FL (7.4-10.4); MONOCYTES # (AUTO) 1.1 X10'3 (0-0.9); MONOCYTES % (AUTO) 10.9 % (2-12); NEUTROPHILS # (AUTO) 6.9 X10'3 (1.8-7.7); NEUTROPHILS % (AUTO) 68.7 % (42-75); PLATELET COUNT 143 X10'3 (140-440); RED CELL DISTRIBUTION WIDTH 13.9 % (11.5-14.5); WHITE BLOOD COUNT 10.1 X10'3 (4.5-11.0)
[2018-09-11 05:53] LABS: GLUCOSE 122 MG/DL (70-104); SODIUM 138 MMOL/L (135-145)
[2018-09-11 05:54] LABS: ALBUMIN 3.1 G/DL (3.4-5.0); ANION GAP 5 (8-16); BLOOD UREA NITROGEN 34 MG/DL (7-18); BUN/CREATININE RATIO 29.8 (5.4-32.0); CALCIUM 7.8 MG/DL (8.5-10.1); CHLORIDE 105 MMOL/L (99-107); CREATININE 1.14 MG/DL (0.60-1.10); MAGNESIUM 2.3 MG/DL (1.5-2.4); PHOSPHORUS 2.4 MG/DL (2.3-4.5); POTASSIUM 4.7 MMOL/L (3.5-5.1); TOTAL CARBON DIOXIDE 28.2 MMOL/L (24-32); eGFR 62 ML/MIN
[2018-09-11] MEDS: gabapentin 300mg capsule PO SCH ×2 (07:24→15:07)
[2018-09-11] MEDS: docusate sod 100mg capsule PO SCH ×2 (07:24→20:59)
[2018-09-11] MEDS: metoprolol tartrate 25mg tablet PO SCH ×2 (07:24→21:00)
[2018-09-11] MEDS: atorvastatin 10mg tablet PO SCH (07:24)
[2018-09-11] MEDS: pantoprazole 40mg Tablet.DR PO SCH (07:24)
[2018-09-11] MEDS: loratadine 10mg tablet PO SCH (07:25)
[2018-09-11] MEDS: montelukast 10mg tablet PO SCH (07:25)
[2018-09-11] MEDS: DOXYCYCLINE 100MG CAPSULE PO SCH ×2 (07:25→17:22)
[2018-09-11] MEDS: aspirin 81mg tablet.DR PO SCH (07:25)
[2018-09-11] MEDS: insulin Lispro (HumaLOG) vial - multi-dose SQ SCH ×3 (08:44→19:33)
[2018-09-11] MEDS: magnesium hydroxide 30ml (MOM) UD suspension PO PRN (11:00)
[2018-09-11] MEDS: sodium chloride 0.45% 1,000 ML IV SCH (12:57)
[2018-09-11] MEDS ORDERED: lactose-reduced food (Ensure High Protein) 237ml bottle PO SCH (13:00)
[2018-09-11] MEDS: diphenhydrAMINE 25mg capsule PO PRN (15:07)
[2018-09-11 20:03] LABS: CLARITY,URINE CLEAR (Clear); COLOR,URINE YELLOW (Yellow); GLUCOSE, URINE NEGATIVE (Neg); KETONES,URINE NEGATIVE (Neg); LEUKOCYTE ESTERASE ,URINE NEGATIVE (Neg); NITRITES, URINE NEGATIVE (Neg); OCCULT BLOOD,URINE NEGATIVE (Neg); PH,URINE 5.5 (4.8-8.0); PROTEIN,URINE NEGATIVE (Neg); UROBILINOGEN,URINE 0.2 E.U/dL (0.2-1.0)
[2018-09-11 20:09] LABS: UA COLLECTION TYPE STRAIGHT CATH
[2018-09-11] MEDS ORDERED: tamsulosin 0.4mg capsule PO SCH (21:00)
[2018-09-11] MEDS: insulin glargine (Lantus) pen - multi-dose SQ SCH (21:06)
[2018-09-12] VITALS (11 sets, daily range): BP systolic 84–126; BP diastolic 42–99
[2018-09-12] MEDS: gabapentin 300mg capsule PO SCH ×2 (00:48→08:31)
[2018-09-12] MEDS: HYDROcodone/acetaminophen 10/325mg tab PO PRN ×2 (00:48→08:31)
[2018-09-12] MEDS: diphenhydrAMINE 25mg capsule PO PRN (05:08)
[2018-09-12 05:31] LABS: MAGNESIUM 2.2 MG/DL (1.5-2.4); PHOSPHORUS 2.7 MG/DL (2.3-4.5); POTASSIUM 4.8 MMOL/L (3.5-5.1)
[2018-09-12] MEDS: metoprolol tartrate 25mg tablet PO SCH (08:30)
[2018-09-12] MEDS: DOXYCYCLINE 100MG CAPSULE PO SCH (08:30)
[2018-09-12] MEDS: aspirin 81mg tablet.DR PO SCH (08:30)
[2018-09-12] MEDS: montelukast 10mg tablet PO SCH (08:31)
[2018-09-12] MEDS: docusate sod 100mg capsule PO SCH (08:31)
[2018-09-12] MEDS: pantoprazole 40mg Tablet.DR PO SCH (08:31)
[2018-09-12] MEDS: atorvastatin 10mg tablet PO SCH (08:31)
[2018-09-12] MEDS: loratadine 10mg tablet PO SCH (08:31)
[2018-09-12] MEDS: magnesium hydroxide 30ml (MOM) UD suspension PO PRN (08:31)
[2018-09-12] MEDS: insulin Lispro (HumaLOG) vial - multi-dose SQ SCH (08:45)
[2018-09-12] MEDS ORDERED: magnesium citrate 296ml oral solution PO ONE (09:15)
[2018-09-12] MEDS ORDERED: ceFAZolin 1,000 MG/D5W 50ML IVPB Premixed bag IV SCH (11:02)
== END 2018-09-12 11:45 | DRG 236 ==
LOC: PAS IN 05:11 → EDSTATUS 08:30 → ICU 2S 10:15
PROVIDERS: ADMIT Thoracic Surgery (Cardiothoracic Vascular Surgery); ATTEND Thoracic Surgery (Cardiothoracic Vascular Surgery)
PROC: 021209W Bypass Coronary Artery, Three Arteries from Aorta with Autologous Venous Tissue, Open Approach (ICD-10-PCS; 2018-09-07)
PROC: 06BP4ZZ Excision of Right Saphenous Vein, Percutaneous Endoscopic Approach (ICD-10-PCS; 2018-09-07)
PROC: 02BN0ZX Excision of Pericardium, Open Approach, Diagnostic (ICD-10-PCS; 2018-09-07)
PROC: 02HP32Z Insertion of Monitoring Device into Pulmonary Trunk, Percutaneous Approach (ICD-10-PCS; 2018-09-07)
PROC: 4A133B3 Monitoring of Arterial Pressure, Pulmonary, Percutaneous Approach (ICD-10-PCS; 2018-09-07)
PROC: 4A1239Z Monitoring of Cardiac Output, Percutaneous Approach (ICD-10-PCS; 2018-09-07)
PROC: 02HV33Z Insertion of Infusion Device into Superior Vena Cava, Percutaneous Approach (ICD-10-PCS; 2018-09-07)
PROC: B548ZZA Ultrasonography of Superior Vena Cava, Guidance (ICD-10-PCS; 2018-09-07)
PROC: 5A1221Z Performance of Cardiac Output, Continuous (ICD-10-PCS; 2018-09-07)
PROC: B24BZZ4 Ultrasonography of Heart with Aorta, Transesophageal (ICD-10-PCS; 2018-09-07)
PROC: 02100Z9 Bypass Coronary Artery, One Artery from Left Internal Mammary, Open Approach (ICD-10-PCS; principal; 2018-09-07 07:40)
DX: I25.119 Atherosclerotic heart disease of native coronary artery with unspecified angina pectoris (principal); I50.32 Chronic diastolic (congestive) heart failure; I31.8 Other specified diseases of pericardium; E11.42 Type 2 diabetes mellitus with diabetic polyneuropathy; E78.00 Pure hypercholesterolemia, unspecified; F41.0 Panic disorder [episodic paroxysmal anxiety]; I11.0 Hypertensive heart disease with heart failure; G89.29 Other chronic pain; G47.30 Sleep apnea, unspecified; J44.9 Chronic obstructive pulmonary disease, unspecified; M19.90 Unspecified osteoarthritis, unspecified site; F41.9 Anxiety disorder, unspecified; R14.0 Abdominal distension (gaseous); K59.09 Other constipation; M54.5 Low back pain; Z90.79 Acquired absence of other genital organ(s); Z88.8 Allergy status to other drugs, medicaments and biological substances; Z79.899 Other long term (current) drug therapy; Z79.82 Long term (current) use of aspirin; Z87.891 Personal history of nicotine dependence
CPT/HCPCS: 0232T; 93312; 93325; 36415; 36600; 71045; 80048; 80053; 81003; 82330; 82435; 82803; 82947; 82948; 83036; 83735; 84100; 84132; 84295; 85018; 85025; 85347; 85384; 85610; 85730; 86885; 86900; 86901; 86920; 87070; 93005; 93880; 93971; 94002; 94010; 94667; 94668; 94760; 97110; 97116; 97161; 97530; A6255; A6258; A6402; A6449; A7000; A7048; C1751; C9113; G0378; J0690; J1644; J1815; J1885; J2001; J2060; J2150; J2250; J2270; J2370; J2440; J2704; J2720; J3370; J3475; J3480; J3490; J7030; J7060; J7120; P9045; P9047; Q0163

== ENCOUNTER 2022-03-13 12:47 | Observation (INO) | payer MEDICARE, OTHER ==
[2022-03-12 13:58] LABS: BASOPHILS % (AUTO) 0.4 % (0-1); EOSINOPHILS # (AUTO) 0.2 X10'3 (0-0.9); EOSINOPHILS % (AUTO) 3.4 % (0-6); LYMPHOCYTES # (AUTO) 1.4 X10'3 (1.1-4.8); MEAN CORPUSCULAR HEMOGLOBIN 29.8 PG (27.0-31.0); MEAN CORPUSCULAR HGB CONC 33.3 g/dL (33.0-36.5); MEAN CORPUSCULAR VOLUME 89.7 FL (78-98); MEAN PLATELET VOLUME 8.3 FL (7.4-10.4); MONOCYTES # (AUTO) 0.5 X10'3 (0-0.9); MONOCYTES % (AUTO) 9.5 % (2-12); NEUTROPHILS # (AUTO) 3.2 X10'3 (1.8-7.7); NEUTROPHILS % (AUTO) 60.7 % (42-75); PRE OP HEMATOCRIT 40.7 % (42.0-52.0); PRE OP HEMOGLOBIN 13.5 g/dL (14.0-17.9); PRE OP PLATELET COUNT 191 X10'3 (140-440); RED BLOOD COUNT 4.54 X10'6 (4.70-6.10); RED CELL DISTRIBUTION WIDTH 13.4 % (11.5-14.5)
[2022-03-12 14:11] LABS: UA COLLECTION TYPE VOIDED
[2022-03-12 14:11] LABS: PRE OP PROTIME 10.7 SECONDS (9.0-12.0)
[2022-03-12 14:12] LABS: CLARITY,URINE CLEAR (Clear); COLOR,URINE YELLOW (Yellow); GLUCOSE, URINE NEGATIVE (Neg); KETONES,URINE NEGATIVE (Neg); LEUKOCYTE ESTERASE ,URINE NEGATIVE (Neg); NITRITES, URINE NEGATIVE (Neg); OCCULT BLOOD,URINE NEGATIVE (Neg); PH,URINE 5.5 (4.8-8.0); PROTEIN,URINE NEGATIVE (Neg); UROBILINOGEN,URINE 0.2 E.U/dL (0.2-1.0)
[2022-03-12 14:13] LABS: ALBUMIN 3.9 G/DL (3.4-5.0); ALKALINE PHOSPHATASE 84 IU/L (46-116); BLOOD UREA NITROGEN 22 MG/DL (7-18); BUN/CREATININE RATIO 18.5 (5.4-32.0); CALCIUM 8.7 MG/DL (8.5-10.1); CHLORIDE 107 MMOL/L (99-107); CREATININE 1.19 MG/DL (0.60-1.10); PRE OP ALT 20 U/L (30-65); PRE OP AST 20 U/L (10-37); PRE OP BILIRUB, TOTAL 0.5 MG/DL (0.0-1.0); PRE OP GLUCOSE 119 MG/DL (70-104); PRE OP POTASSIUM 4.5 MMOL/L (3.4-5.1); TOTAL CARBON DIOXIDE 30.2 MMOL/L (24-32); eGFR 59 ML/MIN
[2022-03-12 14:17] LABS: ALBUMIN/GLOBULIN RATIO 1.2 (1.1-1.5); PRE OP ANION GAP 6 (8-16); PRE OP SODIUM 143 MMOL/L (135-145); TOTAL PROTEIN 7.2 G/DL (6.4-8.2)
[2022-03-13] VITALS (15 sets, daily range): BP systolic 107–145; BP diastolic 43–106
[~2022-03-13] VITALS: Ht 177.8 cm; Wt 110.1 kg
[~2022-03-13 12:47] MED LIST changes: +ALBU8.5H17 INH; +AZEL50FO TOP; +CALC500T11 PO; +CHOL20004 PO; +CLOB25SO7 TOP; +CLOP75TA34 PO; +CYCL-1 PO; +FAMO20TA8 PO; +FLO0.4C PO; -IRBE150T27 PO; -SENN-161 PO; +SENN-263 PO; +albuterol 2.5 MG/3 ML nebule NEB ONE; +ceFAZolin inj. 2,000 MG in dextrose 5%-water 100 ML IV ONE; +famotidine 20mg tablet PO ONE
[2022-03-13] MEDS ORDERED: LIDOcaine 1% 30ml preserv. free vial ONE (12:59)
[2022-03-13] MEDS ORDERED: fentaNYL/PF 50MCG/1 ML 2ML syringe IV PRN ×2 (13:25)
[2022-03-13] MEDS ORDERED: hydrALAZINE 20mg/ml inj. IV PRN (13:25)
[2022-03-13] MEDS ORDERED: ondansetron/PF 4mg/2ml inj IV PRN ×2 (13:25→20:35)
[2022-03-13] MEDS ORDERED: morphine 2 MG/ML inj. syringe IV PRN (13:25)
[2022-03-13] MEDS ORDERED: labetalol 20mg/4ml (5mg/ml) syringe IV PRN (13:25)
[2022-03-13] MEDS ORDERED: morphine 4 MG/ML inj SYRINge IV PRN (13:25)
[2022-03-13] MEDS ORDERED: ringers solution, lacted 1,000 ML IV SCH (13:25)
--- NOTE | 2022-03-13 13:55 | NUR ---
PATIENT'S IV WAS INITIATED AT 1355. FLUSHED LINE WITH 10ML OF NS, LINE IS PATENT WITH NO ISSUES.
--- NOTE | 2022-03-13 15:00 | NUR ---
THE OR NURSE CALLED AND LET THE PAS NURSE KNOW THE THE SURGEON WAS APPROXIMATELY 4-6 HOURS LATE. THE PATIENT IS PREPPED AND READY FOR SURGERY ALREADY. PATIENT AND WERE MADE AWARE OF THE SITUATION. PATIENT REQUESTED APPLE JUICE. I CALLED DR ROBB TO SEE IF THE PATIENT COULD HAVE JUICE. GAVE JUICE AT 1500
--- NOTE | 2022-03-13 15:15 | NUR ---
CALLED PCU TO GIVE REPORT. THE NURSE NANETTE WAS UNAVAILABLE. SHE WILL CALL BACK.
--- NOTE | 2022-03-13 16:50 | NUR ---
Pt received on unit. No c/o pain, VS stable.
--- NOTE | 2022-03-13 18:25 | NUR ---
Pt left floor with surgical staff for pacemaker placement. Accompanied by , belongings left in room.
[2022-03-13] MEDS ORDERED: midazolam 1 mg/ML 2ml injection ONE (18:32)
[2022-03-13] MEDS ORDERED: sevoflurane 250ml liquid IH ONE (18:35)
[2022-03-13] MEDS ORDERED: propofol inj 20 ML IV ONE (19:02)
[2022-03-13] MEDS ORDERED: ePHEDrine 50MG/ML INJ. ONE (19:02)
[2022-03-13] MEDS ORDERED: fentaNYL/PF 50MCG/1 ML 2ML syringe ONE (20:00)
--- NOTE | 2022-03-13 20:27 | NUR ---
Received from OR via PCU BED, accompanied by Anesthesiologist DR HARRY and report given by Anesthesiolgist. PT PLACED ON 02 AND MONITOR, S/P PLACEMENT PACEMAKER, GENERAL ANESTH., PT HAS LEFT UPPER CHEST NEW PPM SITE, TEGADERM COVERING STERI STRIPS WITH SCANT DRAINAGE NOTED AT INCISION. PLACED 1 LITER IV BAG OVER SURGICAL SITE PER DR BROWN'S REQUEST, DENIES PAIN OR NAUSEA, 18 LEAD EKG TAKEN,AND CHEST XRAY. WILL CONT TO ASSESS.
[2022-03-13] MEDS ORDERED: naloxone 0.4 mg/ml inj IV PRN (20:35)
[2022-03-13] MEDS: HYDROcodone/acetaminophen 10/325mg tab PO PRN (21:09)
--- NOTE | 2022-03-13 21:27 | NUR ---
Report called to receiving nurse. Transferred via BED Belongings IN PT ROOM. HOME TELEMETRY TRANSMITTER WITH PT. VSS. PPM SITE STABLE, SLING IN PLACE. LITER BAG ON L UPPER CHEST FOR PRESSURE TO SITE. Special Issues communicated to receiving nurse.
--- NOTE | 2022-03-13 21:30 | NUR ---
Report received from Marjorie, patient returned to room, stable upon arrival, denies pain, wearing sling, minimal drainage from insertion site, steri strips and transparent dressing intact. with patient at bedside. Started obtaining post op vitals, patient instructed to keep sling on, not to lift arm and s/s to report to nurse. Will continue to monitor.
[2022-03-13] MEDS ORDERED: CHOL20002 PO (23:23)
[2022-03-13] MEDS: ceFAZolin inj. 1,000 MG in dextrose 5%-water 50ml 50 ML IV SCH (23:30)
[2022-03-13] MEDS: potassium CL 20mEq in D5-1/2NS 1,000 ML IV SCH (23:30)
[2022-03-14 02:00] VITALS: BP 128/65
[2022-03-14] MEDS: potassium CL 20mEq in D5-1/2NS 1,000 ML IV SCH ×2 (03:45→07:47)
[2022-03-14] MEDS: HYDROcodone/acetaminophen 10/325mg tab PO PRN (03:45)
[2022-03-14 04:00] VITALS: BP 126/58
[2022-03-14 06:00] VITALS: BP 124/58
--- NOTE | 2022-03-14 06:36 | NUR ---
Patient in room PCU 3014. I have received report from LACEY PEGUERO, and had the opportunity to ask questions and assume patient care.
[2022-03-14] MEDS: ceFAZolin inj. 1,000 MG in dextrose 5%-water 50ml 50 ML IV SCH (07:48)
[2022-03-14] MEDS ORDERED: atorvastatin 10mg tablet PO SCH (08:00)
[2022-03-14] MEDS ORDERED: AZELAIC ACID TOP SCH (08:00)
[2022-03-14] MEDS ORDERED: calcium carbonate 500mg chew tablet PO SCH (08:00)
[2022-03-14] MEDS ORDERED: aspirin 81mg, enteric-coated 1 TAB TABLET.DR PO SCH (08:00)
[2022-03-14] MEDS ORDERED: calcium carbonate 500mg tablet PO SCH (08:00)
[2022-03-14 11:00] VITALS: BP 128/63
--- NOTE | 2022-03-14 13:20 | NUR ---
PT STABLE FOR DISCHARGE PER MD. DISCHARGE AND FOLLOW PAPERWORK REVIEWED WITH PT AND HIS . EDUCATION ON PACEMAKER REINFORCED. APPROPRIATE PAPERWORK SIGNED. TELE BOX REMOVED. PIV REMOVED, TIP INTACT. BELONGINGS GATHERED AND SENT WITH PT. PT DISCHARGED TO HOME. PT TRANSFERRED TO PRIVATE VEHICLE BY HOSPITAL STAFF.
[2022-03-14] MEDS ORDERED: non-formulary drug (Clobetasol Propionate 1 APPLIC) TOP SCH (21:00)
[2022-03-14] MEDS ORDERED: diazepam 5mg tablet PO SCH (21:00)
--- NOTE | 2022-03-25 09:20 | NUR ---
Case Management DC follow up:Spoke with Patient via telephone.S/P:Patient Reports:Denies:Acute/continuous chest pain,emergent SOB, vertigo,weakness, syncopal episodes, fever, chills, s/s of infection. redness, drainage,warmth to touch at inc site , unexplained bruising, bleeding.Verbalizes understanding of s/s that warrant 9-11/ER visit for further evaluation. Verbalizes compliance with aftercare , mild exercise, not lifting greater than ten pounds, not lifting arm up over shoulder; carries pacemaker card in his wallet.Verbalized understanding of Rx:, why prescribed ; continues/resumes current Rx as ordered.Verbalized he has seen for follow up, and has scheduled appointment with .Verbalized his recent hospital stay, and other stays in hospital were great, staff excellent, food great; never, never, go anywhere else.Needs met,questions/concerns addressed at DC.No further questions/concerns regarding recent hospital stay and/or DC status at this time.
== END 2022-03-14 14:15 | disposition home or self-care (01) ==
LOC: PAS 12:47 → PCU 3S 21:20
PROVIDERS: ADMIT Surgery; ATTEND Surgery
DX: I44.1 Atrioventricular block, second degree (principal); I49.5 Sick sinus syndrome; J45.909 Unspecified asthma, uncomplicated; J93.9 Pneumothorax, unspecified; E11.9 Type 2 diabetes mellitus without complications; I25.10 Atherosclerotic heart disease of native coronary artery without angina pectoris; I10 Essential (primary) hypertension; E66.9 Obesity, unspecified; Z87.891 Personal history of nicotine dependence; Z85.828 Personal history of other malignant neoplasm of skin; Z79.899 Other long term (current) drug therapy
CPT/HCPCS: 33208; 36415; 71045; 71046; 76000; 80053; 81003; 82948; 83036; 85025; 85610; 85730; 86885; 86900; 86901; 93005; 96365; 96366; 96375; C1785; G0378; J0690; J2250; J2704; J3010; J3480; J3490; J7060; J7120; A4215; A4565; A4618; A6258; A7000

== ENCOUNTER 2025-06-18 07:12 | Day surgery (SDC) | payer MEDICARE, OTHER ==
[2025-06-13 14:52] LABS: MEAN PLATELET VOLUME 8.2 FL (7.4-10.4); PRE OP HEMATOCRIT 40.8 % (42.0-52.0); PRE OP HEMOGLOBIN 13.7 g/dL (14.0-17.9); PRE OP PLATELET COUNT 181 X10'3 (140-440); PRE OP WHITE BLOOD COUNT 7.0 10'3 (4.8-10.8); RED CELL DISTRIBUTION WIDTH 14.9 % (11.5-14.5)
[2025-06-13 15:20] LABS: CREATININE 1.23 MG/DL (0.60-1.10); PRE OP ALT 21 U/L (30-65); PRE OP ANION GAP 6 (8-16); PRE OP AST 18 U/L (10-37); PRE OP BILIRUB, TOTAL 0.5 MG/DL (0.0-1.0); PRE OP GLUCOSE 134 MG/DL (70-104); PRE OP POTASSIUM 4.7 MMOL/L (3.4-5.1); PRE OP SODIUM 143 MMOL/L (135-145); TOTAL CARBON DIOXIDE 31.0 MMOL/L (24-32); eGFR 56 ML/MIN
[~2025-06-18] VITALS: Ht 175.3 cm; Wt 114.8 kg
[2025-06-18] MEDS: ceFAZolin 2gm/dext,iso 50mL 50 ML IV ONE (05:30)
[~2025-06-18 07:12] MED LIST changes: -AZEL50FO TOP; +BUPIVAcaine/PF 2.5mg/ml (0.25%) 10ml vial ONE; +CHOL10006 PO; -CHOL20004 PO; -CLOB25SO7 TOP; -DIAZ10TA PO; +DIAZ5TAB PO; -DOXY100T2 PO; +DOXY100T30 PO; -FLO0.4C PO; -GABA-532 PO; +GABA-535 PO; +LIDOcaine 2% (20mg/ml) 5ml vial ONE; +MONT-47 PO; -MONT10TA21 PO; +PROAIR HFA AER INH; -SENN-263 PO; +SENN1TAB61 PO; +TAMS-55 PO; -ceFAZolin inj. 2,000 MG in dextrose 5%-water 100 ML IV ONE; -famotidine 20mg tablet PO ONE; -ringers solution, lacted 1,000 ML IV SCH
[2025-06-18 07:34] VITALS: BP 142/74; PULSE 76; RESP 16; TEMP 96.7; O2SAT 100
[2025-06-18] MEDS ORDERED: ondansetron/PF 4mg/2ml inj IV PRN (08:05)
[2025-06-18] MEDS ORDERED: morphine 4 MG/ML inj SYRINge IV PRN (08:05)
[2025-06-18] MEDS ORDERED: labetalol 20mg/4ml (5mg/ml) syringe IV PRN (08:05)
[2025-06-18] MEDS ORDERED: ringers solution, lacted 1,000 ML IV SCH (08:05)
[2025-06-18] MEDS: ringers solution, lacted 1,000 ML IV SCH (08:06)
[2025-06-18] MEDS ORDERED: fentaNYL/PF 50MCG/1 ML 2ML syringe ONE (09:09)
[2025-06-18] MEDS ORDERED: midazolam 1 mg/ML 2ml injection ONE (09:10)
[2025-06-18] MEDS ORDERED: propofol 10mg/ml 20ml vial IV ONE (09:16)
[2025-06-18] MEDS ORDERED: flumazenil 0.1 mg/ml inj. 10mL vial IV ONE (09:22)
[2025-06-18 09:27] VITALS: BP 117/60; PULSE 75; RESP 16; O2SAT 100
[2025-06-18] MEDS: BUPIVAcaine/PF 2.5mg/ml (0.25%) 10ml vial IJ ONE (09:33)
[2025-06-18] MEDS: LIDOcaine 2% (20mg/ml) 5ml vial SQ ONE (09:34)
[2025-06-18 09:40] VITALS: BP 112/64; PULSE 75; RESP 10; O2SAT 97
[2025-06-18 09:50] VITALS: BP 122/68; PULSE 75; RESP 12; O2SAT 99
[2025-06-18 10:00] VITALS: BP 121/72; PULSE 75; RESP 10; O2SAT 98
--- NOTE | 2025-06-18 13:00 | OPERATIVE REPORT ---
Operative Report Providers to ~ Date of Procedure: Jun 18, 2025 Pre-Operative Diagnosis: Left wrist carpal tunnel syndrome Post-Operative Diagnosis SAME as PRE-Op Procedure Performed Left wrist open carpal tunnel release Surgeon: Pito Arango MD Intensivist None Anesthesiologist: Radames [place] Type of Anesthesia: Other (Local anesthetic) Findings: Estimated Blood Loss: None Specimen Removed: None Description of Procedure: The patient is an 85-year-old man with carpal tunnel syndrome refractory to nonsurgical treatment. Surgery is indicated to relieve symptoms. Risks and benefits were discussed with the patient and he agreed to proceed. Meryl's brought to the operating room where the arm was prepped and draped in usual manner. Local anesthetic was infiltrated proximal to the wrist crease after time-out procedure. Tourniquet was elevated on the forearm and a 3 cm incision was made in the palm ulnar to the thenar crease in line with the radial side of the ring finger through skin and palmar fascia. Blunt dissection was done down to the transverse carpal ligament which was then opened in line with the skin incision. The median nerve was identified and protected while the ligament was divided distally to the transverse arch and then proximally to the wrist crease followed by division of the forearm fascia a short distance. The nerve was decompressed and no lesions were noted in the carpal canal. No excessive tenosynovium was identified. The incision was irrigated and closed with nylon suture. A sterile dressing was then applied and the tourniquet was released. The hand perfused well and he was taken to the recovery room in stable condition. PITO ARANGO Jr., MD Jun 18, 2025 13:00
== END 2025-06-18 10:07 | disposition home or self-care (01) ==
LOC: PAS 07:12
PROVIDERS: ATTEND Orthopaedic Surgery Hand Surgery
DX: G56.02 Carpal tunnel syndrome, left upper limb (principal); I10 Essential (primary) hypertension; I25.119 Atherosclerotic heart disease of native coronary artery with unspecified angina pectoris; E78.00 Pure hypercholesterolemia, unspecified; E11.9 Type 2 diabetes mellitus without complications; J45.909 Unspecified asthma, uncomplicated; E66.9 Obesity, unspecified; K21.9 Gastro-esophageal reflux disease without esophagitis; G62.9 Polyneuropathy, unspecified; G47.30 Sleep apnea, unspecified; M19.90 Unspecified osteoarthritis, unspecified site; Z87.891 Personal history of nicotine dependence; Z86.73 Personal history of transient ischemic attack (TIA), and cerebral infarction without residual deficits; Z79.02 Long term (current) use of antithrombotics/antiplatelets; Z79.2 Long term (current) use of antibiotics; Z79.84 Long term (current) use of oral hypoglycemic drugs; Z79.899 Other long term (current) drug therapy; Z95.1 Presence of aortocoronary bypass graft; Z98.890 Other specified postprocedural states; Z68.37 Body mass index [BMI] 37.0-37.9, adult; Z91.040 Latex allergy status; Z88.8 Allergy status to other drugs, medicaments and biological substances
CPT/HCPCS: 36415; 64721; 80053; 82948; 85025; A4215; A6449; J2003; J2250; J2704; J3010; J3490; J7030; J7120; Z7506; Z7512; Z7610